=== PATIENT | male | born 1985 | race Caucasian/White ===

== ENCOUNTER 2017-04-27 21:01 | Emergency (ER) | payer OTHER ==
[~2017-04-27] VITALS: Ht 188 cm; Wt 151.6 kg
[2017-04-27] MEDS ORDERED: AMOXICILLIN500 MG PO (22:30)
[2017-04-27 22:48] VITALS: BP 146/85
== END 2017-04-27 22:49 | disposition home or self-care (01) ==
LOC: EME 21:01 → EXP 21:01
DX: K04.7 Periapical abscess without sinus (principal); F17.200 Nicotine dependence, unspecified, uncomplicated; Z88.8 Allergy status to other drugs, medicaments and biological substances
CPT/HCPCS: 99281; 99283